=== PATIENT | male | born 1945 | race Caucasian/White ===

== ENCOUNTER → 2017-02-24 | Outpatient (CLI) | payer MEDICARE ==
[~2017-02-24] MED LIST: ANEXSIA 7.5/3251 TA1 PO; ASPIRIN EC81 M1; ASPIRIN81 M2 PO; ASPIRIN81 MG PO; FLONASE 0.05% N16 G1; FLONASE16 GM; FLOVENT DI50 MCG/DIS INH; GLIPIZIDE2.5 MG/BO1 PO; GLUCOTROL PO; LEVEMIR SQ; LIPITOR PO; LIPITOR40 MG PO; LIPITOR80 MG PO; LISINOPRIL PO; METFORMIN; METFORMIN HCL1000 M1 PO; METFORMIN PO; MULTIPLE VITAMI1 T12 PO; PERCOCET 7.5/321 TAB PO; PRINIVIL40 MG PO; PROBENECID-COL1 EACH PO; TOPROL XL PO; TOPROL XL100 MG PO; TOUJEO SOL300 UNIT/1 SUBQ
--- NOTE | ~2017-02-24 | EKG ---
PATIENT: PRATIK MENDOSA UNIT #: [id number] Ventricular Rate: 65 BPM Atrial Rate: 65 BPM P-R Interval: 188 ms QRS Duration: 92 ms Q-T Interval: 378 ms QTC Calculation(Bezet): 393 ms P Concrete: 59 degrees Calculated R Concrete: 14 degrees Calculated T Concrete: 73 degrees Diagnosis Line: Normal sinus rhythm Diagnosis Line: Normal ECG Diagnosis Line: When compared with ECG of 23-MAY-2016 08:52, Diagnosis Line: No significant change was found Diagnosis Line: Confirmed by LATISHA PRATHER MD ([id number]) on Diagnosis Line: 02/24/2017 11:30:47 AM INTERPRETING MD: YAMILKA SUERO
[2017-02-24 10:09] LABS: BASOPHIL# 0.1 X10e3 (0-0.3); BASOPHIL% 0.9 % (0-2.5); EOSINOPHIL# 0.2 X10e3 (0-0.7); EOSINOPHIL% 2.9 % (0.0-7.0); HEMATOCRIT 40.6 % (38.0-50.0); HEMOGLOBIN 13.8 gm/dL (13.0-16.0); LYMPHOCYTE# 2.1 X10e3 (1.0-3.5); LYMPHOCYTE% 25.3 % (17.0-45.0); MEAN CELL VOLUME 89.5 FL (83-96); MEAN CORPUSCULAR HEMOGLOBIN 30.4 PG (28-34); MONOCYTE# 0.8 X10e3 (0-1.0); NEUTROPHIL# 5.2 X10e3 (1.5-7.1); NEUTROPHIL% 61.9 % (40-75); PLATELET COUNT 166 X10e3 (140-420); RED BLOOD COUNT 4.54 X10e (3.90-5.60); RED CELL DISTRIBUTION WIDTH 14.4 % (11.0-15.5); WHITE BLOOD COUNT 8.4 X10e3 (4.0-10.5)
[2017-02-24 10:20] LABS: DIFF IND NO
[2017-02-24 10:27] LABS: BUN/CREATININE RATIO 21.81; CALCIUM SERUM 8.9 mg/dL (8.4-10.2); CREATININE SERUM 1.1 mg/dL (0.6-1.4); GLOM FILT RATE Estimated 67.7 mL/min (>60); POTASSIUM 5.3 mmol/L (3.5-5.1)
== END | disposition home or self-care (01) ==
LOC: SEKG 09:41
PROVIDERS: Urology
DX: N48.1 Balanitis (principal)
CPT/HCPCS: 36415; 80048; 85025; 93005